=== PATIENT | female | born 1935 | race Caucasian/White ===

== ENCOUNTER 2018-10-20 20:22 | Inpatient (IN) | payer OTHER, BC ==
[2018-10-20] MEDS ORDERED: ASPIRIN 81 MG CHEWABLE TABLETS PO ONE (20:40)
--- NOTE | 2018-10-20 20:40 | PDOC ---
History of Present Illness - General Chief Complaint: Chest Pain Stated Complaint: CHEST PAIN Time Seen by Provider: 10/20/18 20:30 - History of Present Illness Initial Comments: 10/20/18 20:40 Ms. Humphries is an 83 yo female w/ pmh of HTN, HLD, and chronic nerve pain who presents for evaluation of transient chest pain. Patient reports pain started for a brief time yesterday after she drank some soda and went away quickly; returned today while her grandson was having a tantrum. Patient describes the pain as sharp and across her chest/radiating to L arm. Pain went away following nitro given by EMS in ambulance on the way to ER. Patient has no further pain at this time. Patient accompanied by daughter who reports mother is at baseline. Last echo was last year and normal. Patient is scheduled for another in November. Teacher Specialist: Dr. Mcdowell. The patient denies shortness of breath, headache and dizziness. Denies fever, chills, nausea, vomit, diarrhea and constipation. Denies dysuria, frequency, urgency and hematuria. Past History - Past Medical History Allergies/Adverse Reactions: Allergies Allergy/AdvReac Type Severity Reaction Status Date / Time No Known Allergies Allergy Verified 10/20/18 20:29 Home Medications: Ambulatory Orders Escitalopram Oxalate [Lexapro -] 5 mg PO DAILY 10/20/18 Gabapentin 600 mg PO BID 10/20/18 Nifedipine ER [Procardia XL -] 30 mg PO HS 10/20/18 Pravastatin Sodium 10 mg PO DAILY 10/20/18 Quinapril HCl 40 mg PO DAILY 10/20/18 COPD: No HTN: Yes Psychiatric Problems: Yes (ANXIETY) - Suicide/Smoking/Psychosocial Hx Smoking History: Never smoked Review of Systems - Review of Systems Comments:: 10/20/18 20:43 GENERAL/CONSTITUTIONAL: No fever or chills. No weakness. HEAD, EYES, EARS, NOSE AND THROAT: No change in vision. No ear pain or discharge. No sore throat. CARDIOVASCULAR: +Chest pain as described. No shortness of breath RESPIRATORY: No cough, wheezing, or hemoptysis. GASTROINTESTINAL: No nausea, vomiting, diarrhea or constipation. GENITOURINARY: No dysuria, frequency, or change in urination. MUSCULOSKELETAL: No joint or muscle swelling or pain. No neck or back pain. SKIN: No rash NEUROLOGIC: No headache, vertigo, loss of consciousness, or change in strength/ sensation. ENDOCRINE: No increased thirst. No abnormal weight change HEMATOLOGIC/LYMPHATIC: No anemia, easy bleeding, or history of blood clots. ALLERGIC/IMMUNOLOGIC: No hives or skin allergy. *Physical Exam - Vital Signs Last Vital Signs Temp Pulse Resp BP Pulse Ox 97.8 F 74 18 182/87 H 99 10/20/18 20:25 10/20/18 20:25 10/20/18 20:25 10/20/18 20:25 10/20/18 20:25 - Physical Exam Comments: 10/20/18 20:43 GENERAL: Awake, alert, and fully oriented, in no acute distress HEAD: No signs of trauma, normocephalic, atraumatic EYES: PERRLA, EOMI, sclera anicteric, conjunctiva clear ENT: Auricles normal inspection, hearing grossly normal, nares patent, oropharynx clear without exudates. Moist mucosa NECK: Normal ROM, supple, no lymphadenopathy, JVD, or masses LUNGS: No distress, speaks full sentences, clear to auscultation bilaterally HEART: Regular rate and rhythm, normal S1 and S2, no murmurs, rubs or gallops, peripheral pulses normal and equal bilaterally. ABDOMEN: Soft, nontender, normoactive bowel sounds. No guarding, no rebound. No masses EXTREMITIES: Normal inspection, Normal range of motion, no edema. No clubbing or cyanosis. NEUROLOGICAL: Cranial nerves II through XII grossly intact. Normal speech, normal gait, no focal sensorimotor deficits SKIN: Warm, Dry, normal turgor, no rashes or lesions noted. Heart Score/ECG Review - History History: Moderately suspicious - Electrocardiogram EKG: Non specific repolarization disturbance - Age Age: >/= 65 - Risk Factors Risk Factors Heart Score: Yes Hx Hypercholesterolemia, Yes Hx Hypertension Based on the list above the patient has:: 1-2 risk factors - Troponin Troponin: </= normal limit - Score Heart Score - Total: 5 ED Treatment Course - LABORATORY CBC & Chemistry Diagram: 10/20/18 20:40 10/20/18 20:40 Medical Decision Making - Medical Decision Making 10/20/18 21:12 Ms. Humphries is an 83 yo female w/ pmh as described who presents for evaluation of chest pain. Patient will be evaluated with cardiac labs as well as EKG and CXR. Patient will likely be admitted for cardiology evaluation and echo. EKG noted to be normal sinus rhythm. T wave inversion noted in aVL only. Non- concerning EKG. 10/20/18 21:51 Patient labs grossly wnl. Patient will be admitted for further cardiology consult / echo. Cardiology service line down upon call. Will attempt to contact later. *DC/Admit/Observation/Transfer Diagnosis at time of Disposition: Chest pain Qualifiers: Chest pain type: unspecified Qualified Code(s): R07.9 - Chest pain, unspecified - Discharge Dispostion Decision to Admit order: Yes - Referrals Referrals: Melania Conroy MD [Primary Care Provider] - - Patient Instructions - Post Discharge Activity
[2018-10-20 20:53] LABS: BASO % 0.9 % (0-2.0); EOS % 2.6 % (0-4.5); HEMATOCRIT 35.3 % (32.4-45.2); HEMOGLOBIN 11.7 GM/dL (10.7-15.3); LYMPH % 20.3 % (8-40); MCH 29.4 pg (25.7-33.7); MEAN PLT VOLUME 8.1 fl (7.5-11.1); MONO % 5.7 % (3.8-10.2); NEUT % 70.5 % (42.8-82.8); RBC 3.97 M/mm3 (3.60-5.2); RDW 13.3 % (11.6-15.6); WHITE BLOOD COUNT 7.9 K/mm3 (4.0-10.0)
[2018-10-20 20:59] LABS: PLATELET COUNT 231 K/MM3 (134-434)
[2018-10-20 21:01] LABS: INR 0.91 (0.83-1.09); PROTHROMBIN TIME (PATIENT) 10.7 SEC (9.7-13.0)
[2018-10-20] MEDS ORDERED: ASPIRIN 325 MG TABLET ONE (21:02)
[2018-10-20] MEDS ORDERED: ASPIRIN 81 MG CHEWABLE TABLETS ONE (21:02)
[2018-10-20 21:04] LABS: ACTIVATED PTT 32.3 SECONDS (25.2-36.5)
--- NOTE | 2018-10-20 21:28 | PDOC ---
Documentation entered by Montse Donovan SCRIBE, acting as scribe for Sherri Webb MD. Sherri Webb MD: This documentation has been prepared by the scribe, Montse Donovan SCRIBE, under my direction and personally reviewed by me in its entirety. I confirm that the documentation accurately reflects all work, treatment, procedures, and medical decision making performed by me. Attending Attestation - Resident Resident Name: [email or web address] - ED Attending Attestation I have performed the following: I have examined & evaluated the patient, The case was reviewed & discussed with the resident, I agree w/resident's findings & plan, Exceptions are as noted - HPI HPI: 10/20/18 22:01 The patent is an 83 year old female with a significant past medical history of hypertension, hyperlipidemia and chronic leg neuropathy who presents to the emergency department with chest pain since yesterday. The patient states that on her onset of chest pain yesterday she had just finished drinking soda. Today the patient states that she experienced some stress induced chest pain secondary to her grandson throwing a tantrum. The patient was given nitro en route to the ED. she denies any shortness of breath, headache, dizziness. The patient denies any other complaints. - Physicial Exam PE: GENERAL: Awake, alert, and fully oriented, in no acute distress HEAD: No signs of trauma EYES: PERRLA, EOMI, sclera anicteric, conjunctiva clear ENT: Auricles normal inspection, hearing grossly normal, nares patent, oropharynx clear without exudates. Moist mucosa NECK: Normal ROM, supple, no lymphadenopathy, JVD, or masses LUNGS: Breath sounds equal, clear to auscultation bilaterally. No wheezes, and no crackles HEART: Regular rate and rhythm, normal S1 and S2, no murmurs, rubs or gallops ABDOMEN: Soft, nontender, normoactive bowel sounds. No guarding, no rebound. No masses EXTREMITIES: Normal range of motion, no edema. No clubbing or cyanosis. No cords, erythema, or tenderness NEUROLOGICAL: Cranial nerves II through XII grossly intact. Normal speech. Motor and sensation intact SKIN: Warm, Dry, normal turgor, no rashes or lesions noted. - Medical Decision Making 10/20/18 21:26 Pt is pain free at present. S/p sublingual nitro by EMS. HEART score is 6. 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 Heart Score/ECG Review - History History: Moderately suspicious - Electrocardiogram EKG: Normal - Age Age: >/= 65 - Risk Factors Risk Factors Heart Score: Yes Hx Hypercholesterolemia, Yes Hx Hypertension Based on the list above the patient has:: 1-2 risk factors - Troponin Troponin: </= normal limit - Score Heart Score - Total: 4
[2018-10-20 21:41] LABS: ALBUMIN 3.7 g/dl (3.4-5.0); ALK PHOS 60 U/L (45-117); ANION GAP 7 MMOL/L (8-16); BILIRUBIN,TOTAL 0.2 mg/dL (0.2-1); BLOOD UREA NITROGEN 16.4 mg/dL (7-18); CALCIUM 8.5 mg/dL (8.5-10.1); CHLORIDE 108 mmol/L (98-107); CO2 25 mmol/L (21-32); CREATININE 1.1 mg/dL (0.55-1.3); GLUCOSE,RANDOM 139 mg/dL (74-106); POTASSIUM 4.1 mmol/L (3.5-5.1); SGOT/AST 19 U/L (15-37); SGPT/ALT 22 U/L (13-61); SODIUM 140 mmol/L (136-145); TOT PROT 6.5 g/dl (6.4-8.2)
[2018-10-20] MEDS ORDERED: ACETAMINOPHEN 325 MG TABLET (FP) PO ONE (22:16)
[2018-10-20] MEDS ORDERED: ACETAMINOPHEN 325 MG TABLET (FP) ONE (22:18)
[2018-10-20] MEDS ORDERED: NITROGLYCERIN SUBLINGUAL 1/150 0.4 MG TAB SL ONE (22:42)
[2018-10-20] MEDS ORDERED: NITROGLYCERIN SUBLINGUAL 1/150 0.4 MG TAB ONE (22:46)
[2018-10-20] MEDS ORDERED: hydrALAZINE HCL 20 MG/ML VIAL IVPUSH ONE (23:27)
--- NOTE | 2018-10-20 23:41 | PN ---
Teaching Attending Note Name of Resident: Jaxon Davis ATTENDING PHYSICIAN STATEMENT I saw and evaluated the patient. I reviewed the resident's note and discussed the case with the resident. I agree with the resident's findings and plan as documented. SUBJECTIVE: Seen and examined; please refer to resident note for further historical information. Briefly, this is a 83 y/o female presenting with 2 days atypical CP; it is substernal that radiates to the back between the shoulder blades. Not pleuritic or reproducible. She is afebrile but is noted to have SBP to 190s ; did not recieve treatment so giving hydralazine 10 stat. She is not toxic appearing and is in good spirits. No prior admits here. She saw Dr. Mcdowell last year who did a stress test (pharm) in November 2017; no records available but she tells me that no further workup was done after it and that the test was normal. Never had a cath. She had an echo at the time of the stress test which she reports as normal. She will be admitted to telemetry to r/o ACS. 10 sys ROS done and negative aside from HPI PMH, PSH, FH, SH reviewed Home Medications Medication Instructions Recorded Escitalopram Oxalate [Lexapro -] 5 mg PO DAILY 10/20/18 Gabapentin 600 mg PO BID 10/20/18 Nifedipine ER [Procardia XL -] 30 mg PO HS 10/20/18 Pravastatin Sodium 10 mg PO DAILY 10/20/18 Quinapril HCl 40 mg PO DAILY 10/20/18 OBJECTIVE: VS, labs, imaging reviewed NAD, AAO, resting comfortably in bed NC AT EOMI PERRLA RRR s1/2 no mgr Lungs CTAB, w/ sym exp NT ND +BS CN2-12 wnl, no fnd EKG reviewed CXR reviewed ASSESSMENT AND PLAN: Patient is a 83 y/o female presenting with chest pain found to have uncontrolled HTN to the 190s SBP 1) Chest Pain -Could be 2/2 Angina vs. HTN vs. other; control BP and monitor on telemetry. Trend troponin and followup AM EKG. -Obtain last year's stress and echo (reported as 11/2017). Can discuss with patient's title processor utility of further cardiac diagnostics inpatient. -Checking TSH, Lipids, A1c. -Given BP elevation with CP radiating to shoulders checking D-dimer to screen for dissection; if elevated consider contrast study of chest. 2) HTN Urgency -SBP 190s; takes qHS nifedipine 30 at home so will give her dose now and followup BP. PRN Hydralazine should she remain outside goal range. -Continue Quinapril 3) HLD -Continue pravastatin Full Code
[2018-10-20] MEDS ORDERED: NIFEdipine E.R. 30 MG TABLET (FP) PO SCH (23:44)
--- NOTE | 2018-10-20 23:44 | HP ---
CHIEF COMPLAINT: Chest Pain PCP: Dr Conroy HISTORY OF PRESENT ILLNESS: Pt is an 83 y/o F with a significant past medical history of HTN, HLD, Neuropathy who presented to [facility] due to chest pain. C hest pain commenced yesterday evening and is described as "pressure-like". Pt was not exerting herself when the pain began. Pain is described as a 10/10 in pain severity and radiated to her left arm. Pt has never experienced this pain in the past. Pt endorses she took a "painkiller" when she began to experience the chest pain. Echocardiogram was reportedly normal last year. Pt was scheduled to visit her euclid operator this November. Denies palpitations, shortness of breath, sweating, LOC, nausea, or vomiting. PMH- As Above SocialHx- Denies Tobacco, Alcohol, or illicit drug use Surg- "Brain Neuroma removal" FH- 2 sisters breast cancer ER course was notable for: (1) BP 194/71 (2) ASA+Nitro (3) Allergies No Known Allergies Allergy (Verified 10/20/18 20:29) HOME MEDICATIONS: Home Medications Medication Instructions Recorded Escitalopram Oxalate [Lexapro -] 5 mg PO DAILY 10/20/18 Gabapentin 600 mg PO BID 10/20/18 Nifedipine ER [Procardia XL -] 30 mg PO HS 10/20/18 Pravastatin Sodium 10 mg PO DAILY 10/20/18 Quinapril HCl 40 mg PO DAILY 10/20/18 REVIEW OF SYSTEMS CONSTITUTIONAL: Absent: fever, chills, diaphoresis, generalized weakness, malaise, loss of appetite, weight change HEENT: Absent: rhinorrhea, nasal congestion, throat pain, throat swelling, difficulty swallowing, mouth swelling, ear pain, eye pain, visual changes CARDIOVASCULAR: PRESENT: chest pain RESPIRATORY: Absent: cough, shortness of breath, dyspnea with exertion, orthopnea, wheezing, stridor, hemoptysis GASTROINTESTINAL: Absent: abdominal pain, abdominal distension, nausea, vomiting, diarrhea, constipation, melena, hematochezia GENITOURINARY: Absent: dysuria, frequency, urgency, hesitancy, hematuria, flank pain, genital pain MUSCULOSKELETAL: Absent: myalgia, arthralgia, joint swelling, back pain, neck pain SKIN: Absent: rash, itching, pallor HEMATOLOGIC/IMMUNOLOGIC: Absent: easy bleeding, easy bruising, lymphadenopathy, frequent infections ENDOCRINE: Absent: unexplained weight gain, unexplained weight loss, heat intolerance, cold intolerance NEUROLOGIC: Absent: headache, focal weakness or paresthesias, dizziness, unsteady gait, seizure, mental status changes, bladder or bowel incontinence PSYCHIATRIC: Absent: anxiety, depression, suicidal or homicidal ideation, hallucinations. PHYSICAL EXAMINATION Vital Signs - 24 hr 10/20/18 10/20/18 10/20/18 20:25 20:29 20:49 Temperature 97.8 F 97.6 F Pulse Rate 74 Pulse Rate [ 63 Right Radial] Respiratory 18 Rate Blood Pressure 182/87 H Blood Pressure 171/82 H [Left Arm] O2 Sat by Pulse 99 100 100 Oximetry (%) 10/20/18 10/20/18 22:50 23:12 Temperature 98.1 F Pulse Rate Pulse Rate [ 68 62 Right Radial] Respiratory 20 18 Rate Blood Pressure Blood Pressure 194/71 H 190/68 H [Left Arm] O2 Sat by Pulse 100 Oximetry (%) GENERAL: AAOx3 NAD HEAD: Atraumatic/Normocephalic EYES: EOMI Sclera Clear EARS, NOSE, THROAT: MMM. LUNGS: CTAB HEART:RRR S1S2 ABDOMEN: NDNT MUSCULOSKELETAL: FROM throughout LOWER EXTREMITIES: No CCE NEUROLOGICAL: Cranial nerves II-XII intact. Normal speech. Laboratory Results - last 24 hr 10/20/18 10/20/18 10/20/18 20:40 20:40 20:40 WBC 7.9 RBC 3.97 Hgb 11.7 Hct 35.3 MCV 89.0 MCH 29.4 MCHC 33.0 RDW 13.3 Plt Count 231 MPV 8.1 Absolute Neuts (auto) 5.6 Neutrophils % 70.5 Lymphocytes % 20.3 Monocytes % 5.7 Eosinophils % 2.6 Basophils % 0.9 Nucleated RBC % 0 PT with INR 10.70 INR 0.91 PTT (Actin FS) 32.3 Sodium 140 Potassium 4.1 Chloride 108 H Carbon Dioxide 25 Anion Gap 7 L BUN 16.4 Creatinine 1.1 Est GFR (CKD-EPI)AfAm 53.02 Est GFR (CKD-EPI)NonAf 45.74 Random Glucose 139 H Calcium 8.5 Total Bilirubin 0.2 AST 19 ALT 22 Alkaline Phosphatase 60 Creatine Kinase 62 Troponin I < 0.02 Total Protein 6.5 Albumin 3.7 ASSESSMENT/PLAN: Pt is an 83 y/o F with a significant past medical history of HTN, HLD, Neuropathy who presented to [facility] due to chest pain. # Chest pain. R/O ACS. -Troponin Negative. Repeat pending -Echocardiogram -Repeat EKg in am -Tele Cardiology Consult #Hypertsnive Urgency/Emergency -BP 194 systolic in ED -Pt states did not take nigh BP medications. -Procardia 30 given. Pt restarted on her home medications. -D-Dimer NEGATIVE. CTA deferred in light of this finding. -Q4h BP #HLD Resume Statin #Neuropathy Resume Gabapentin #FEN No Fluids Monitor Electrolytes Low Salt Diet #DVT ppx: HEPSQTID #Dispo: Tele Visit type - Emergency Visit Emergency Visit: Yes ED Registration Date: 10/20/18 Care time: The patient presented to the Emergency Department on the above date and was hospitalized for further evaluation of their emergent condition. - New Patient This patient is new to me today: Yes Date on this admission: 10/21/18 - Critical Care Critical Care patient: No
[2018-10-21 06:41] LABS: BASO % 0.6 % (0-2.0); EOS % 2.2 % (0-4.5); HEMATOCRIT 34.8 % (32.4-45.2); HEMOGLOBIN 11.4 GM/dL (10.7-15.3); LYMPH % 19.2 % (8-40); MCH 29.1 pg (25.7-33.7); MCHC 32.8 g/dl (32.0-36.0); MEAN CELL VOLUME 88.8 fl (80-96); MEAN PLT VOLUME 8.5 fl (7.5-11.1); PLATELET COUNT 207 K/MM3 (134-434); RBC 3.92 M/mm3 (3.60-5.2); RDW 13.6 % (11.6-15.6); WHITE BLOOD COUNT 7.8 K/mm3 (4.0-10.0)
[2018-10-21] MEDS: HEPARIN NA (PORCINE) 5,000 UNITS/ML 1ML VIAL SQ SCH ×3 (06:49→21:28)
[2018-10-21 07:08] LABS: ALBUMIN 3.3 g/dl (3.4-5.0); BILIRUBIN,TOTAL 0.2 mg/dL (0.2-1); BLOOD UREA NITROGEN 17.5 mg/dL (7-18); CALCIUM 8.8 mg/dL (8.5-10.1); CREATININE 0.9 mg/dL (0.55-1.3); MAGNESIUM 2.2 mg/dL (1.8-2.4); PHOSPHOROUS 3.8 mg/dL (2.5-4.9); POTASSIUM 4.4 mmol/L (3.5-5.1); TOT PROT 5.8 g/dl (6.4-8.2)
[2018-10-21 07:13] LABS: INR 0.95 (0.83-1.09); PROTHROMBIN TIME (PATIENT) 11.2 SEC (9.7-13.0)
--- NOTE | 2018-10-21 08:53 | CON.CARD ---
Consult Consult Specialty:: cardio - History of Present Illness Chief Complaint: chest pain History of Present Illness: 83 F here with chest pain. 10/19 around 7pm, after dinner, began to feel heaviness across center of chest, radiating to L arm. arm has been aching and feeling a bit numb, ? if specifically had numbness at that time. R arm discomfort too then but L more prominent. associated discomfort mid-scapular region as well. no assctd jaw/throat sx's. no assctd diaph, LH/presyncope, sob. not positional or pleuritic in nature. denies sour taste in mouth, acid/burning features, nausea, abd pain or bloating/ gas sensation (has gas/bloating at times, but this felt different). resolved after at while, probably an hour or more, gone by the time she went to bed at 9pm she thinks. similar sx's occurred in evening, again after ate, yest. decided to come to hosp for evaluation. no more cp today no sob, cp, decr ET with routine exertion noted of late PMH: HTN HPL neuropathy never cigs no FH of CAD - Past Medical History ...: No - Alcohol/Substance Use Hx Alcohol Use: No - Smoking History Smoking history: Never smoked Have you smoked in the past 12 months: No Home Medications - Allergies Allergies/Adverse Reactions: Allergies Allergy/AdvReac Type Severity Reaction Status Date / Time No Known Allergies Allergy Verified 10/20/18 20:29 - Home Medications Home Medications: Ambulatory Orders Escitalopram Oxalate [Lexapro -] 5 mg PO DAILY 10/20/18 Gabapentin 600 mg PO BID 10/20/18 Nifedipine ER [Procardia XL -] 30 mg PO HS 10/20/18 Pravastatin Sodium 10 mg PO DAILY 10/20/18 Quinapril HCl 40 mg PO DAILY 10/20/18 Review of Systems - Review of Systems Constitutional: denies: Chills, Fever Eyes: denies: Eye Pain HENT: denies: Nasal Congestion Neck: denies: Stiffness Cardiovascular: denies: Palpitations Respiratory: denies: Orthopnea, PND Gastrointestinal: denies: Diarrhea, Rectal Bleeding Genitourinary: denies: Burning, Hematuria Musculoskeletal: denies: Muscle Pain Integumentary: denies: Rash Neurological: denies: Numbness, Seizure, Syncope Endocrine: denies: Excessive Sweating Hematology/Lymphatic: denies: Excessive Bleeding Vital Signs: Vital Signs Temperature 97.6 F 10/21/18 07:00 Pulse Rate 62 10/21/18 07:00 Respiratory Rate 18 10/21/18 07:00 Blood Pressure 146/76 10/21/18 07:00 O2 Sat by Pulse Oximetry (%) 99 10/21/18 04:29 Constitutional: Yes: Well Nourished, No Distress Eyes: No: Sclera Icterus HENT: No: Nasal Congestion Neck: No: Decreased ROM Respiratory: Yes: CTA Bilaterally. No: Accessory Muscle Use, Rales, Wheezes Gastrointestinal: Yes: Normal Bowel Sounds. No: Distention, Hepatomegaly, Palpable Mass, Tenderness Cardiovascular: Yes: Regular Rate and Rhythm JVD: No Carotid Bruit: No PMI: Non-Displaced Heart Sounds: Yes: S1, S2. No: Gallop Murmur: No: Systolic Murmur, Diastolic Murmur Musculoskeletal: Yes: Other (No kyphosis) Extremities: No: Cool, Cyanosis Edema: No Peripheral Pulses: 2+ Left Carotid, 2+ Right Carotid, 2+ Left Doralis Pedis, 2+ Right Dorsalis Pedis Integumentary: No: Jaundice Neurological: Yes: Alert, Oriented (x3) Psychiatric: No: Agitated - Other Data Labs, Other Data: CBC, BMP 10/21/18 05:40 10/21/18 05:40 INR, PTT INR 0.95 (0.83-1.09) 10/21/18 05:40 Troponin, BNP 10/20/18 10/21/18 20:40 03:15 Troponin I < 0.02 0.05 Troponin, BNP 10/20/18 10/21/18 20:40 03:15 Troponin I < 0.02 0.05 Laboratory Tests 10/20/18 10/21/18 10/21/18 20:40 03:15 05:40 WBC 7.8 Hgb 11.4 Plt Count 207 Sodium Potassium Carbon Dioxide BUN Creatinine AST ALT Troponin I < 0.02 0.05 Triglycerides Cholesterol Total LDL Cholesterol HDL Cholesterol 10/21/18 05:40 WBC Hgb Plt Count Sodium 141 Potassium 4.4 Carbon Dioxide 25 BUN 17.5 Creatinine 0.9 AST 17 ALT 18 Troponin I Triglycerides 152 H Cholesterol 157 Total LDL Cholesterol 52 HDL Cholesterol 85 H Assessment/Plan ECG: NSR, LAFB, nonsp ST-Ts lateral leads (no old) CXR: clear lungs/pleura tele: NSR, prob episode of PAT of uncertain duration (tele strip ends before termination) chest pain: -in setting of hi bp above her usual baseline she says (doesn't check at home) -ECG no ischemia. trop neg x 2 -sx description is atypical, however not clearly related to gas/bloating or GERD , or mskel -intermediate pretest prob of obstr CAD--for pharm nuclear stress test tomorrow HTN: -hypertensive to 180s-190s systolic initially, now improved but remains suboptimal -change nifedipine 30 to amlodipine 10 (better 24 hr drug coverage) -cont home KELLY -observe BP trend PSVT/PAT: -atrial tach episode suspected on tele -cont tele monitoring -defer BB unless recurrent episodes HPL: -cont home statin (or equivalent)
[2018-10-21] MEDS ORDERED: PT OWN MED DRAWER 7, Y5N ONE ×2 (09:19→10:07)
[2018-10-21] MEDS: QUINAPRIL HCL 40 MG TABLET (FP) PO SCH (10:38)
[2018-10-21] MEDS: GABAPENTIN 300 MG CAPSULE (FP) PO SCH ×2 (10:38→21:28)
[2018-10-21] MEDS: ESCITALOPRAM OXALATE 10 MG TABLET (FP) PO SCH (10:38)
--- NOTE | 2018-10-21 11:13 | PN ---
Physical Exam: SUBJECTIVE: Patient seen and examined, no further chest pain or back pain. Denies any headache, visual changes, weakness, abdominal or urinary symptoms. No prior symptoms of exertional chest pain or dyspnea though not very active at baseline. OBJECTIVE: Vital Signs Period Temp Pulse Resp BP Sys/Cunningham Pulse Ox Last 24 Hr 97.6 F-98.2 F 62-74 18-20 136-194/66-87 98-100 Intake & Output 10/18/18 10/19/18 10/20/18 10/21/18 23:59 23:59 23:59 23:59 Weight 120 lb 122 lb 9.6 oz GENERAL: sitting in bed in no acute distress Neck: soft, supple, no JVD CVS:S1S2 regular Chest: CTAB, no rales or wheezing Abdomen: soft, NT throughout, ND, pos bowel sounds Extremities: no edema, pos DP pulses Psych: pleasant, co-operative Laboratory Results - last 24 hr 10/20/18 10/20/18 10/20/18 20:40 20:40 20:40 WBC 7.9 RBC 3.97 Hgb 11.7 Hct 35.3 MCV 89.0 MCH 29.4 MCHC 33.0 RDW 13.3 Plt Count 231 MPV 8.1 Absolute Neuts (auto) 5.6 Neutrophils % 70.5 Lymphocytes % 20.3 Monocytes % 5.7 Eosinophils % 2.6 Basophils % 0.9 Nucleated RBC % 0 PT with INR 10.70 INR 0.91 PTT (Actin FS) 32.3 D-Dimer Sodium 140 Potassium 4.1 Chloride 108 H Carbon Dioxide 25 Anion Gap 7 L BUN 16.4 Creatinine 1.1 Est GFR (CKD-EPI)AfAm 53.02 Est GFR (CKD-EPI)NonAf 45.74 Random Glucose 139 H Hemoglobin A1c % Calcium 8.5 Phosphorus Magnesium Total Bilirubin 0.2 AST 19 ALT 22 Alkaline Phosphatase 60 Creatine Kinase 62 Troponin I < 0.02 Total Protein 6.5 Albumin 3.7 Triglycerides Cholesterol Total LDL Cholesterol HDL Cholesterol 10/21/18 10/21/18 10/21/18 00:00 03:15 05:40 WBC 7.8 RBC 3.92 Hgb 11.4 Hct 34.8 MCV 88.8 MCH 29.1 MCHC 32.8 RDW 13.6 Plt Count 207 MPV 8.5 Absolute Neuts (auto) 5.6 Neutrophils % 72.0 Lymphocytes % 19.2 Monocytes % 6.0 Eosinophils % 2.2 Basophils % 0.6 Nucleated RBC % 0 PT with INR INR PTT (Actin FS) D-Dimer 398 Sodium Potassium Chloride Carbon Dioxide Anion Gap BUN Creatinine Est GFR (CKD-EPI)AfAm Est GFR (CKD-EPI)NonAf Random Glucose Hemoglobin A1c % Calcium Phosphorus Magnesium Total Bilirubin AST ALT Alkaline Phosphatase Creatine Kinase Troponin I 0.05 Total Protein Albumin Triglycerides Cholesterol Total LDL Cholesterol HDL Cholesterol 10/21/18 10/21/18 10/21/18 05:40 05:40 05:40 WBC RBC Hgb Hct MCV MCH MCHC RDW Plt Count MPV Absolute Neuts (auto) Neutrophils % Lymphocytes % Monocytes % Eosinophils % Basophils % Nucleated RBC % PT with INR 11.20 INR 0.95 PTT (Actin FS) 31.0 D-Dimer Sodium 141 Potassium 4.4 Chloride 110 H Carbon Dioxide 25 Anion Gap 6 L BUN 17.5 Creatinine 0.9 Est GFR (CKD-EPI)AfAm 67.57 Est GFR (CKD-EPI)NonAf 58.30 Random Glucose 82 Hemoglobin A1c % 5.6 Calcium 8.8 Phosphorus 3.8 Magnesium 2.2 Total Bilirubin 0.2 AST 17 ALT 18 Alkaline Phosphatase 52 Creatine Kinase Troponin I Total Protein 5.8 L Albumin 3.3 L Triglycerides 152 H Cholesterol 157 Total LDL Cholesterol 52 HDL Cholesterol 85 H Active Medications Generic Name Dose Route Start Last Admin Trade Name Freq PRN Reason Stop Dose Admin Atorvastatin Calcium 10 mg 10/21/18 22:00 Lipitor - PO HS TAWNYA Escitalopram Oxalate 5 mg 10/21/18 10:00 10/21/18 10:38 Lexapro - PO 5 mg DAILY TAWNYA Administration Gabapentin 600 mg 10/21/18 10:00 10/21/18 10:38 Neurontin - PO 600 mg BID TAWNYA Administration Heparin Sodium (Porcine) 5,000 unit 10/21/18 06:00 10/21/18 06:49 Heparin - SQ 5,000 unit TID TAWNYA Administration Nifedipine 30 mg 10/20/18 23:44 10/20/18 23:54 Procardia Xl - PO 30 mg HS TAWNYA Administration Quinapril HCl 40 mg 10/21/18 10:00 10/21/18 10:38 Accupril - PO 40 mg DAILY TAWNYA Administration ASSESSMENT/PLAN: 83 yof with PMHx of HTN, HLD, neuropathy, admitted with chest pain, radiating to left arm and back and hypertensive urgency. -Chest pain -Hypertensive urgency -HLD -Neuropathy Plan: Asymptomatic, no events on telemetry, trop neg x 2. BP improved. Continue nifedipine/quinapril. Not on beta-Kimber, ?given baseline bradycardia. Follow up cardiology input. Dispo planning in 24 hours pending BP improvement and cardiology recs. Plan discussed with patient and nursing in detail, all questions answered. Visit type - Emergency Visit Emergency Visit: Yes ED Registration Date: 10/20/18 Care time: The patient presented to the Emergency Department on the above date and was hospitalized for further evaluation of their emergent condition. - New Patient This patient is new to me today: Yes Date on this admission: 10/21/18 - Critical Care Critical Care patient: No - Discharge Referral Referred to [facility] No
[2018-10-21] MEDS: ASPIRIN COATED 81 MG TABLET.EC PO SCH (13:41)
[2018-10-21] MEDS: amLODIPine BESYLATE 5 MG TABLET (FP) PO SCH (13:41)
[2018-10-21] MEDS ORDERED: ATORVASTATIN CA 10 MG TABLET (FP) PO SCH (22:00)
--- NOTE | 2018-10-22 00:20 | EKG ---
Test Reason : Blood Pressure : / mmHG Vent. Rate : 063 BPM Atrial Rate : 063 BPM P-R Int : 206 ms QRS Dur : 080 ms QT Int : 432 ms P-R-T Axes : 070 -38 089 degrees QTc Int : 442 ms SINUS RHYTHM WITH PREMATURE ATRIAL COMPLEXES LEFT AXIS DEVIATION ABNORMAL ECG NO PREVIOUS ECGS AVAILABLE Confirmed by MD Julio, Surinder ([id number]) on 10/22/2018 12:19:54 AM Referred By: Confirmed By:Surinder Kim MD
[2018-10-22] MEDS: HEPARIN NA (PORCINE) 5,000 UNITS/ML 1ML VIAL SQ SCH ×2 (06:09→15:35)
[2018-10-22 08:12] LABS: BASO % 0.6 % (0-2.0); HEMATOCRIT 36.9 % (32.4-45.2); HEMOGLOBIN 12.3 GM/dL (10.7-15.3); LYMPH % 23.8 % (8-40); MCH 29.5 pg (25.7-33.7); MCHC 33.3 g/dl (32.0-36.0); MEAN CELL VOLUME 88.5 fl (80-96); MEAN PLT VOLUME 8.6 fl (7.5-11.1); MONO % 6.2 % (3.8-10.2); NEUT % 66.4 % (42.8-82.8); PLATELET COUNT 209 K/MM3 (134-434); RBC 4.17 M/mm3 (3.60-5.2); RDW 13.4 % (11.6-15.6); WHITE BLOOD COUNT 7.5 K/mm3 (4.0-10.0)
[2018-10-22 08:40] LABS: BLOOD UREA NITROGEN 12.7 mg/dL (7-18); CALCIUM 8.8 mg/dL (8.5-10.1); CREATININE 0.8 mg/dL (0.55-1.3); POTASSIUM 4.4 mmol/L (3.5-5.1)
--- NOTE | 2018-10-22 09:22 | PN ---
Progress Note, Physician - Current Medication List Current Medications: Active Medications Amlodipine Besylate (Norvasc -) 5 mg PO DAILY [facility] Last Admin: 10/21/18 13:41 Dose: 5 mg Aspirin (Ecotrin -) 81 mg PO DAILY [facility] Last Admin: 10/21/18 13:41 Dose: 81 mg Atorvastatin Calcium (Lipitor -) 10 mg PO HS [facility] Last Admin: 10/21/18 21:28 Dose: 10 mg Escitalopram Oxalate (Lexapro -) 5 mg PO DAILY [facility] Last Admin: 10/21/18 10:38 Dose: 5 mg Gabapentin (Neurontin -) 600 mg PO BID [facility] Last Admin: 10/21/18 21:28 Dose: 600 mg Heparin Sodium (Porcine) (Heparin -) 5,000 unit SQ TID [facility] Last Admin: 10/22/18 06:09 Dose: 5,000 unit Quinapril HCl (Accupril -) 40 mg PO DAILY [facility] Last Admin: 10/21/18 10:38 Dose: 40 mg - Objective Vital Signs: Vital Signs Temperature 97.4 F L 10/22/18 06:00 Pulse Rate 63 10/22/18 06:00 Respiratory Rate 20 10/22/18 06:00 Blood Pressure 175/77 H 10/22/18 06:00 O2 Sat by Pulse Oximetry (%) 98 10/21/18 20:42 Labs: CBC, BMP 10/22/18 05:45 10/22/18 05:45 INR, PTT INR 0.95 (0.83-1.09) 10/21/18 05:40
[2018-10-22] MEDS ORDERED: PT OWN MED DRAWER 7, Y5N ONE (09:31)
--- NOTE | 2018-10-22 09:53 | PN ---
Progress Note, Physician Chief Complaint: seen and examined in Cardiology TELE: NSR Denies CP or SOB. History of Present Illness: Isolated elevated BP this AM, overall trend WNL - Current Medication List Current Medications: Active Medications Amlodipine Besylate (Norvasc -) 5 mg PO DAILY [facility] Last Admin: 10/21/18 13:41 Dose: 5 mg Aspirin (Ecotrin -) 81 mg PO DAILY [facility] Last Admin: 10/21/18 13:41 Dose: 81 mg Atorvastatin Calcium (Lipitor -) 10 mg PO HS [facility] Last Admin: 10/21/18 21:28 Dose: 10 mg Escitalopram Oxalate (Lexapro -) 5 mg PO DAILY [facility] Last Admin: 10/21/18 10:38 Dose: 5 mg Gabapentin (Neurontin -) 600 mg PO BID [facility] Last Admin: 10/21/18 21:28 Dose: 600 mg Heparin Sodium (Porcine) (Heparin -) 5,000 unit SQ TID [facility] Last Admin: 10/22/18 06:09 Dose: 5,000 unit Quinapril HCl (Accupril -) 40 mg PO DAILY [facility] Last Admin: 10/21/18 10:38 Dose: 40 mg - Objective Vital Signs: Vital Signs Temperature 97.4 F L 10/22/18 06:00 Pulse Rate 63 10/22/18 06:00 Respiratory Rate 20 10/22/18 06:00 Blood Pressure 175/77 H 10/22/18 06:00 O2 Sat by Pulse Oximetry (%) 98 10/21/18 20:42 Constitutional: Yes: No Distress Cardiovascular: Yes: Regular Rate and Rhythm Respiratory: Yes: CTA Bilaterally Gastrointestinal: Yes: Soft Edema: No Neurological: Yes: Alert, Oriented Labs: CBC, BMP 10/22/18 05:45 10/22/18 05:45 INR, PTT INR 0.95 (0.83-1.09) 10/21/18 05:40 Assessment/Plan Assessment/Plan ECG: NSR, LAFB, nonsp ST-Ts lateral leads (no old) CXR: clear lungs/pleura tele: NSR, prob episode of PAT of uncertain duration (tele strip ends before termination) Chest pain: -in setting of hi bp above her usual baseline she says (doesn't check at home) -ECG no ischemia. trop neg x 2 -sx description is atypical, however not clearly related to gas/bloating or GERD , or mskel -intermediate pretest prob of obstr CAD--for pharm nuclear stress test today -further reccs pending stress test HTN: -hypertensive to 180s-190s systolic initially, now improved but remains suboptimal -BP improved, isolated elevated reading this AM (?anxious for stress test); would observe trend prior to increasing Amlo further -cont home KELLY PSVT/PAT: -atrial tach episode suspected on tele -cont tele monitoring -defer BB unless recurrent episodes HPL: -cont home statin (or equivalent)
[2018-10-22] MEDS: QUINAPRIL HCL 40 MG TABLET (FP) PO SCH (10:00)
[2018-10-22] MEDS: amLODIPine BESYLATE 5 MG TABLET (FP) PO SCH (10:00)
[2018-10-22] MEDS ORDERED: REGADENOSON 0.4 MG/5 ML PRE-FILLED SYRINGE IVPUSH ONE ×2 (10:30→10:49)
[2018-10-22] MEDS ORDERED: AMINOPHYLLINE 250 MG/10 ML VIAL IVPUSH ONE (13:15)
[2018-10-22] MEDS: ASPIRIN COATED 81 MG TABLET.EC PO SCH (13:24)
[2018-10-22] MEDS: ESCITALOPRAM OXALATE 10 MG TABLET (FP) PO SCH (13:24)
[2018-10-22] MEDS: GABAPENTIN 300 MG CAPSULE (FP) PO SCH (13:25)
[2018-10-22] MEDS ORDERED: AMINOPHYLLINE 250 MG/10 ML VIAL ONE (13:43)
[2018-10-22 14:53] VITALS: BMI 19.7
--- NOTE | 2018-10-22 15:26 | DS ---
Physical Exam: SUBJECTIVE: Patient seen and examined, denies any chest pain, headache, dyspnea , weakness, vision or speech disturbances. NO palpitations or dizziness during her stay. OBJECTIVE: Vital Signs Period Temp Pulse Resp BP Sys/Cunningham Pulse Ox Last 24 Hr 97.4 F-98.4 F 63-73 18-20 121-175/75-80 98 Intake & Output 10/19/18 10/20/18 10/21/18 10/22/18 23:59 23:59 23:59 23:59 Intake Total 560 Balance 560 Weight 120 lb 122 lb 9.6 oz 122 lb PHYSICAL EXAM GENERAL: sitting in bed in no acute distress neck: soft, supple, no JVD CVS:S1s2 regular Chest: CTAB, no rales or wheezing Abdomen:Soft, NT, ND, pos bowel sounds Extremities: no edema Psych: pleasant co-operative LABS Laboratory Results - last 24 hr 10/22/18 10/22/18 05:45 05:45 WBC 7.5 RBC 4.17 Hgb 12.3 Hct 36.9 MCV 88.5 MCH 29.5 MCHC 33.3 RDW 13.4 Plt Count 209 MPV 8.6 Absolute Neuts (auto) 5.0 Neutrophils % 66.4 Lymphocytes % 23.8 D Monocytes % 6.2 Eosinophils % 3.0 Basophils % 0.6 Nucleated RBC % 0 Sodium 142 Potassium 4.4 Chloride 110 H Carbon Dioxide 27 Anion Gap 5 L BUN 12.7 Creatinine 0.8 Est GFR (CKD-EPI)AfAm 77.92 Est GFR (CKD-EPI)NonAf 67.23 Random Glucose 76 Calcium 8.8 Telemetry: with short episode of PSVT vs PAT (asymptomatic as discussed with patient) Myocardial Perfusion Scan: small zone of anteroapical fixed defect compatible with soft tissue attenuation, Normal LV contraction with LVEF 77%, overall negative pharmacologic nuclear stress HOSPITAL COURSE: Date of Admission:10/20/18 Date of Discharge: 10/22/18 Minutes to complete discharge: 40 Discharge Summary Reason For Visit: CHEST PAIN Current Active Problems Chest pain (Acute) Hospital Course: 83 yof with PMHx of HTN, HLD, neuropathy, admitted with chest pain, radiating to left arm and back and hypertensive urgency. ACS was ruled out. She was seen by cardiology. Her nifedipine has been discontinued and Amlodipine added which is titrated upto 10 mg on discharge. She was continued on her quinapril. Her BP improved. She had nuclear stress test overall negative for ischemia. She had transient episode of PSVT vs PAT on telemetry, asymptomatic. No additional medications were recommended by cardiology unless recurrent events and is recommended outpatient Holter. She will be discharged home in stable condition on amlodipine, Quinapril and outpatient cardiology follow up to discuss Holter monitoring. Condition: Stable - Instructions Diet, Activity, Other Instructions: You were admitted with elevated BP and chest pain, You had stress test that was negative. You were watched on monitor and a transient burst of fast heart rate with no further concerns. Your BP medications have been changed. MEDICATIONS: Start new medication Amlodipine 10 mg daily ASA 81 mg daily STOP: Nifedipine ER Continue other medications as before INSTRUCTIONS: You are started on new medication amlodipine. If you notice any new dizziness or concerning swelling, it could be related to the medication and please notify your doctor or come to ED if severe symptoms. Advise home BP monitoring and maintain a diary. Notify Dr. Conroy if persistently >140/90. You will need to discuss outpatient Holter monitor with Dr. Mcdowell as you were noted with a short burst of fast heart rate during your stay. FOLLOW UP: Dr. Conroy in [address] Mcdowell in 1 week If you notice any new or severe chest pain, headache, weakness, vision changes, dizziness, severely elevated BP (upper reading > 190-200), please call 911 or come to ED right away Referrals: Vernon Mcdowell MD [Staff Physician] - Melania Conroy MD [Primary Care Provider] - Disposition: HOME - Home Medications Comprehensive Discharge Medication List: Ambulatory Orders Escitalopram Oxalate [Lexapro -] 5 mg PO DAILY 10/20/18 Gabapentin 600 mg PO BID 10/20/18 Pravastatin Sodium 10 mg PO DAILY 10/20/18 Quinapril HCl 40 mg PO DAILY 10/20/18 Amlodipine Besylate 10 mg PO DAILY #30 tablet 10/22/18 Aspirin Coated [Ecotrin -] 81 mg PO DAILY #30 tablet.ec 10/22/18 This patient is new to me today: No Emergency Visit: Yes ED Registration Date: 10/20/18 Care time: The patient presented to the Emergency Department on the above date and was hospitalized for further evaluation of their emergent condition. Critical Care patient: No - Discharge Referral Referred to [facility] No
[2018-10-22 15:35] VITALS: BP 149/56; PULSE 71; TEMP 98
== END 2018-10-22 18:27 | disposition home or self-care (01) | DRG 305 ==
LOC: JER 20:22 → JERBED 22:26 → J4W 23:22 → OBSVTOIN 23:27
PROVIDERS: ADMIT Internal Medicine; ATTEND Hospitalist
DX: I16.0 Hypertensive urgency (principal); I47.1 Supraventricular tachycardia; I10 Essential (primary) hypertension; E78.5 Hyperlipidemia, unspecified; G57.90 Unspecified mononeuropathy of unspecified lower limb; R07.89 Other chest pain; I44.4 Left anterior fascicular block
CPT/HCPCS: 36415; 71045-TC-FY; 78452-TC; 80048; 80053; 80061; 82550; 83036; 83721; 83735; 84100; 84484; 85025; 85379; 85610; 85730; 93005; 93010; 93017; 99283-25; A9502; G0378; J1644; J2785